=== PATIENT | female | born 1990 | race Caucasian/White ===

== ENCOUNTER 2019-03-12 13:35 | Emergency (ER) | payer SELFPAY ==
[2019-03-12] MEDS: ACETAMINOPHEN 500 MG TAB PO (14:04)
[2019-03-12] MEDS: KETOROLAC 30 MG INJ IM (14:13)
== END 2019-03-12 15:04 | disposition home or self-care (01) ==
LOC: FTE 13:35
DX: J02.0 Streptococcal pharyngitis (principal)
CPT/HCPCS: 81025; 96372; 99284-25